=== PATIENT | female | born 1990 | race Two or more races ===

== ENCOUNTER 2023-03-31 11:37 | Emergency (ER) | payer OTHER ==
[~2023-03-31] VITALS: Ht 152.4 cm; Wt 83.5 kg
== END 2023-03-31 15:54 | disposition home or self-care (01) ==
LOC: ER 11:37 → EMR PED 11:58 → ER 11:58
DX: K52.89 Other specified noninfective gastroenteritis and colitis (principal); R11.10 Vomiting, unspecified; Z20.822 Contact with and (suspected) exposure to COVID-19